=== PATIENT | male | born 1995 | race Hispanic/Latino ===

== ENCOUNTER 2019-05-30 05:03 | Emergency (ER) | payer OTHER, SELFPAY ==
[2019-05-30 06:03] LABS: Barbiturates NEGATIVE (NEGATIVE); Benzodiazepines NEGATIVE (NEGATIVE); Cocaine POSITIVE (NEGATIVE); METHAMPHETAM NEGATIVE (NEGATIVE); Methadone NEGATIVE (NEGATIVE); Opiates NEGATIVE (NEGATIVE); Phencyclidine NEGATIVE (NEGATIVE); THC Cannibis NEGATIVE (NEGATIVE)
[2019-05-30 06:58] LABS: Urine Blood NEGATIVE (NEG); Urine Glucose NEGATIVE (NEG); Urine Protein NEGATIVE (NEG); Urine pH 5.5 (5.0-7.0)
[2019-05-30] MEDS ORDERED: ONDANSETRON 4 MG (ODT) TAB ONE (08:14)
[2019-05-30] MEDS ORDERED: MORPHINE 4 MG/ML SYR ONE (08:14)
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
[2019-05-30 09:43] VITALS: O2SAT 99
[2019-05-30 09:44] VITALS: BP 140/96; TEMP 97.8
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
--- NOTE | 2019-05-31 07:31 | EKG ---
Test Date: 2019-05-30 Test Time: 04:29:09 Net Repairer: PAULO MEASUREMENT RESULTS: Intervals: Rate: 111 MD: 142 QRSD: 104 QT: 360 QTc: 489 Alfred: P: 49 MD: 142 QRS: 40 T: 2 INTERPRETIVE STATEMENTS: Sinus tachycardia Otherwise normal ECG No previous ECG available for comparison Electronically Signed On 05-31-19 07:30:27 CDT by Richard Willis
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
== END 2019-05-30 09:34 | disposition home or self-care (01) ==
LOC: ER 05:03
PROC: 0PSPXZZ Reposition Right Metacarpal, External Approach (ICD-10-PCS; principal; 2019-05-30)
PROC: 0PSPXZZ Reposition Right Metacarpal, External Approach (ICD-10-PCS; 2019-05-30)
PROC: 0JQF0ZZ Repair Left Upper Arm Subcutaneous Tissue and Fascia, Open Approach (ICD-10-PCS; 2019-05-30)
DX: S62.322A Displaced fracture of shaft of third metacarpal bone, right hand, initial encounter for closed fracture (principal); S62.251A Displaced fracture of neck of first metacarpal bone, right hand, initial encounter for closed fracture; V49.40XA Driver injured in collision with unspecified motor vehicles in traffic accident, initial encounter; Z72.0 Tobacco use
CPT/HCPCS: 36415; 70450; 71260; 72125; 74177; 80307; 80320; 81003; 83690; 86850; 86900; 86901; 93005; 96372; 99285; Q9967